=== PATIENT | female | born 1985 | race Caucasian/White ===

== ENCOUNTER 2016-12-24 14:12 | Emergency (ER) | payer MEDICAID, OTHER ==
[~2016-12-24] VITALS: Ht 160 cm; Wt 62.0 kg
[~2016-12-24 14:12] MED LIST: LORTA5 PO; PREN0.01 PO
[2016-12-24 14:17] VITALS: BP_SYST 124; BP_DIAS 65; BP_DIAS 75; PULSE 84; RESP 16; TEMP 97.7; O2SAT 100
[2016-12-24] MEDS ORDERED: KETOROLAC TROMETHAMINE 60 MG/2 ML (IM) VIAL IM ONE (14:45)
[2016-12-24] MEDS ORDERED: ORPHENADRINE INJ 60 MG/2 ML AMP IM ONE (14:45)
[2016-12-24] MEDS ORDERED: CYCL7.5T33 PO (14:59)
--- NOTE | 2016-12-24 15:00 | PD ---
HPI . Neck pain Chief Complaint: Injury Time Seen by Provider: 14:38 Travel History International Travel<30 days: No Contact w/Intl Traveler<30days: No Traveled to known affect area: No History of Present Illness HPI 31-year-old female presents to emergency room for evaluation of neck pain that was sustained when she hit the top of her head on the roof of a truck when she went mudding this weekend. Patient states she has had neck pain since. Patient denies any paresthesias, fevers, incontinence of urine or stool, neurological deficits. Patient denies any fevers, chills, malaise, chest pain, shortness breath, nausea, vomiting, diarrhea or lightheadedness. Patient has had a fusion surgery on her cervical spine in the past. [facility] Past Medical History Diminished Hearing: No Influenza Vaccination: No ?: Not LMP: SATURDAY Past Surgical History Section: Yes Social History Alcohol Use: Yes (rarely) Tobacco Use: No Substance Use: No Allergies-Medications (Allergen,Severity, Reaction): Coded Allergies: No Known Allergies (Verified , 12/24/16) Reported Meds & Prescriptions Reported Meds & Active Scripts Active Reported Lortab 5/325 Tab (Hydrocodone-Acetaminophen) 1 Tab Tab 1 Tab PO Q4-6 PRN Vit ( Plus) (Prenat Multivit/Dunn/Iron/Folic Ac) Tab 1 Tab PO DAILY Review of Systems Except as stated in HPI: all other systems reviewed are Neg Physical Exam Narrative GENERAL: Well-nourished, well-developed 31-year-old female patient in no acute distress. SKIN: Focused skin assessment warm/dry. HEAD: Normocephalic. Atraumatic EYES: No scleral icterus. No injection or drainage. NECK: Supple, trachea midline. No JVD or lymphadenopathy. CARDIOVASCULAR: Regular rate and rhythm without murmurs, gallops, or rubs. RESPIRATORY: Breath sounds equal bilaterally. No accessory muscle use. GASTROINTESTINAL: Abdomen soft, non-tender, nondistended. MUSCULOSKELETAL: Full range of motion to right rotation of neck, slightly decreased range of motion to left rotation of neck. Full range of motion with extension of neck. Slightly decreased range of motion to flexion of the neck. No cyanosis, or edema. BACK: No midline cervical tenderness. Nontender without obvious deformity. No CVA tenderness. Data Data Last Documented VS Vital Signs Date Time Temp Pulse Resp B/P (MAP) Pulse Ox O2 Delivery O2 Flow Rate FiO2 12/24/16 14:17 97.7 84 16 124/75 (91) 100 Orders Orders Ketorolac Inj (Toradol Inj) (12/24/16 14:45) Orphenadrine Inj (Norflex Inj) (12/24/16 14:45) MDM Medical Decision Making Medical Screen Exam Complete: Yes Emergency Medical Condition: Yes Medical Record Reviewed: Yes Differential Diagnosis Differential diagnoses include but are not limited to muscle sprain, muscle strain, contusion Narrative Course 31-year-old female presents to emergency room for evaluation of neck pain. There is no midline spinal tenderness. Based on patient's symptoms, clinical presentation, vital sign review and physical exam it is not necessary to admit the patient to the hospital or keep the patient in the emergency department for further evaluation. Patient will be given an IM injection of Toradol and an IM injection of Norflex and discharged home. Diagnosis Primary Impression: Neck pain Patient Instructions: Acute Neck Pain (ED), General Instructions Additional Instructions: Please return to emergency department if your symptoms return or worsen. Follow up with your primary care provider. Take medications as prescribed. May use heating pad to alleviate pain. Med/Other Pt SpecificInfo: Prescription(s) given Scripts Cyclobenzaprine (Flexeril) 7.5 Mg Tab 7.5 MG PO TID for Muscle Spasm, #6 TAB 0 Refills Prov: Radha Howell 12/24/16 Disposition: 01 DISCHARGE HOME Condition: Stable Radha Howell Dec 24, 2016 15:00
== END 2016-12-24 15:08 | disposition home or self-care (01) ==
LOC: PHEFT 14:12
DX: M54.2 Cervicalgia (principal); W22.8XXA Striking against or struck by other objects, initial encounter
CPT/HCPCS: 96372; 99284; J1885; J2360